=== PATIENT | female | born 1935 | race Caucasian/White ===

== ENCOUNTER 2020-02-01 14:33 | Emergency (ER) | payer MEDICARE, BC ==
[~2020-02-01] VITALS: Ht 162.6 cm; Wt 65.0 kg
[~2020-02-01 14:33] MED LIST: APIX5TAB3 PO; FENO160T13 PO; GABA600T13 PO; HYDR-3965 PO; VALS1TAB76 PO; metoprolol PO
[2020-02-01 14:58] VITALS: BP 135/70
== END 2020-02-01 17:53 | disposition home or self-care (01) ==
LOC: ER 14:35
DX: S42.292A Other displaced fracture of upper end of left humerus, initial encounter for closed fracture (principal); M25.512 Pain in left shoulder; I48.91 Unspecified atrial fibrillation; Z98.890 Other specified postprocedural states; Z79.899 Other long term (current) drug therapy; X58.XXXA Exposure to other specified factors, initial encounter; Y93.89 Activity, other specified; Y92.89 Other specified places as the place of occurrence of the external cause; Y99.8 Other external cause status
CPT/HCPCS: 73030; 73080; 73110; 93005; 99284

== ENCOUNTER 2020-02-05 13:27 | Emergency (ER) | payer MEDICARE, BC ==
[~2020-02-05] VITALS: Ht 162.6 cm; Wt 65.0 kg
--- NOTE | 2020-02-05 14:16 | NUR ---
DAUGHTER CALLED (RANDY) STATED SHE WOULD PICK HER MOTHER UP WHEN READY PHONE NUMBER [phone]
[2020-02-05] MEDS ORDERED: ketorolac tromethamine 15mg/ml inj. IM ONE (15:35)
[2020-02-05] MEDS ORDERED: LORazepam 2 mg/ml vial IV ONE (15:35)
[2020-02-05 16:30] VITALS: BP 169/85
[2020-02-05] MEDS ORDERED: HYDROcodone/acetaminophen 5mg/325mg tablet PO ONE (17:40)
[2020-02-05] MEDS ORDERED: HYDR-3965 PO (17:44)
[2020-02-05] MEDS ORDERED: METH-360 PO (17:44)
== END 2020-02-05 18:21 | disposition home or self-care (01) ==
LOC: ER 13:28
DX: S32.010A Wedge compression fracture of first lumbar vertebra, initial encounter for closed fracture (principal); I48.91 Unspecified atrial fibrillation; Z79.899 Other long term (current) drug therapy; W18.39XA Other fall on same level, initial encounter; Y93.89 Activity, other specified; Y92.89 Other specified places as the place of occurrence of the external cause; Y99.8 Other external cause status
CPT/HCPCS: 72128; 72131; 96372; 96374; 99285; J1885; J2060